=== PATIENT | male | born 1980 | race Caucasian/White ===

== ENCOUNTER 2017-06-19 02:28 | Emergency (ER) | payer SELFPAY ==
[2017-06-19] MEDS ORDERED: LIDOCAINE 1%/EPINEPHRINE INJ 20 ML VIAL INJ ONE (03:40)
[2017-06-19] MEDS ORDERED: ACETAMINOPHEN 325 MG TABLET PO ONE (03:40)
[2017-06-19] MEDS ORDERED: DIPH/PERTUSS(ACELL)/TETANUS VAC/PF 0.5 ML SYR (>=10YO) IM ONE (03:40)
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
--- NOTE | 2017-06-19 04:26 | RADIOLOGY REPORT (SQ) ---
EXAM DESCRIPTION: CT HEAD WITHOUT CLINICAL HISTORY: 36 years Male, head injury COMPARISON: None. TECHNIQUE: No contrast. This exam was performed according to our departmental dose-optimization program, which includes automated exposure control, adjustment of the mA and/or kV according to patient size and/or use of iterative reconstruction technique. FINDINGS: No hemorrhage or infarct. No mass, mass effect, or midline shift. Caval septum pellucidum. Mild megacisterna magna. Mild left maxillary mucosal thickening. Minimal ethmoid mucus. Soft tissue laceration of the right parietal scalp. Brain and extra-axial structures appear otherwise intact. IMPRESSION: Scalp injury. Else, no acute intracranial findings.
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
[2017-06-19 05:41] VITALS: BP 117/65
== END 2017-06-19 05:41 | disposition home or self-care (01) ==
LOC: ER 02:28
DX: S01.01XA Laceration without foreign body of scalp, initial encounter (principal); Y04.0XXA Assault by unarmed brawl or fight, initial encounter; F17.200 Nicotine dependence, unspecified, uncomplicated
CPT/HCPCS: 99283; 90471; 70450; 72125; 90715; 12004; J3490